=== PATIENT | female | born 1950 | race Hispanic/Latino ===

== ENCOUNTER 2024-04-12 11:00 | Outpatient (RCR) | payer MEDICARE | END 2024-04-14 | LOC: RESP 11:00 | PROVIDERS: ATTEND Internal Medicine | DX: J84.10 Pulmonary fibrosis, unspecified (principal); I10 Essential (primary) hypertension | CPT/HCPCS: 94626 ×2; G0238 ×2 ==

== ENCOUNTER 2024-05-03 11:00 | Outpatient (RCR) | payer MEDICARE | END 2024-05-15 | LOC: RESP 11:00 | PROVIDERS: ATTEND Internal Medicine | DX: J84.10 Pulmonary fibrosis, unspecified (principal); I10 Essential (primary) hypertension | CPT/HCPCS: 94626 ×3; G0238 ×3 ==